=== PATIENT | female | born 1940 | race Caucasian/White ===

== ENCOUNTER 2017-07-22 10:25 | Day surgery (SDC) | payer MEDICARE, OTHER ==
[~2017-07-22] VITALS: Ht 162.6 cm; Wt 78.6 kg
[~2017-07-22 10:25] MED LIST: ALPR.5; ASCO1ER; ASPI81EC; CALMAGZIN; CEPH500 PO; CHOL10002; CONEST.625; CRANBERRY450 MG; ESOM20; ESTRADIOL1 MG PO; FISH OIL 1,0001 EAC1; FISH1000; HYDACE5 PO; Hair, Skin & N1 EACH; MULVITMINF; Omeprazole20 M1 PO; PHENA200 PO; TOCO1000; TOCO400; TRAM50 PO
== END 2017-07-22 13:24 | disposition home or self-care (01) ==
LOC: ORSCSDS 10:25
PROVIDERS: Surgery
PROC: 0DJD8ZZ Inspection of Lower Intestinal Tract, Via Natural or Artificial Opening Endoscopic (ICD-10-PCS; principal; 2017-07-22 11:45)
DX: Z12.11 Encounter for screening for malignant neoplasm of colon (principal); K57.30 Diverticulosis of large intestine without perforation or abscess without bleeding; Z80.0 Family history of malignant neoplasm of digestive organs; M79.7 Fibromyalgia; G47.33 Obstructive sleep apnea (adult) (pediatric); E78.5 Hyperlipidemia, unspecified; K21.9 Gastro-esophageal reflux disease without esophagitis; I10 Essential (primary) hypertension
CPT/HCPCS: J2250; J7120

== ENCOUNTER 2023-12-05 08:33 | Day surgery (SDC) | payer OTHER ==
[~2023-12-05] VITALS: Ht 157.5 cm; Wt 75.6 kg
[2023-12-05] VITALS (7 sets, daily range): BP systolic 84–150; BP diastolic 49–75
[~2023-12-05 08:33] MED LIST changes: -ALPR.5; +ALPR.5 PO; -CHOL10002; -CRANBERRY450 MG; +CRANBERRY500 M1 PO; +FISH OIL 1,0001 EA10 PO; -FISH OIL 1,0001 EAC1; -Hair, Skin & N1 EACH; +Hair, Skin & N1 EACH PO; +Lactated Ringer's 1,000 ML IV SCH; +OMEP20ER PO; -Omeprazole20 M1 PO; +VITAMIN D325 MC3 PO
[2023-12-05] MEDS ORDERED: Vitamin C100 M1 PO (09:13)
[2023-12-05] MEDS ORDERED: propofoL 40 ML IV ONE (09:58)
--- NOTE | 2023-12-05 10:15 | NUR ---
12/05/23 1015 Ede Pillai MONITOR INTACT WITH CONTINUOUS PULSE OXIMETRY, CONTINUOUS END TITAL CO2, AND INTERMITTENT BLOOD PRESSURE. AND EKG ANESTHESIA PER FERNA[employer]O [employer] TECHNICIAN
== END 2023-12-05 11:12 | disposition home or self-care (01) ==
LOC: ORSCMMR 08:33 → ORD 10:15 → ORSCMMR 11:12
PROVIDERS: Surgery
PROC: 0DJD8ZZ Inspection of Lower Intestinal Tract, Via Natural or Artificial Opening Endoscopic (ICD-10-PCS; principal; 2023-12-05 10:15)
DX: Z12.11 Encounter for screening for malignant neoplasm of colon (principal); K57.30 Diverticulosis of large intestine without perforation or abscess without bleeding; Z80.0 Family history of malignant neoplasm of digestive organs; K21.9 Gastro-esophageal reflux disease without esophagitis; G47.33 Obstructive sleep apnea (adult) (pediatric); M79.7 Fibromyalgia; E78.5 Hyperlipidemia, unspecified; E66.9 Obesity, unspecified; Z68.30 Body mass index [BMI] 30.0-30.9, adult; Z79.899 Other long term (current) drug therapy
CPT/HCPCS: J2704; J7120

== ENCOUNTER → 2024-08-05 | Outpatient (CLI) | payer OTHER ==
[~2024-08-05] MED LIST changes: -Lactated Ringer's 1,000 ML IV SCH; +Vitamin C100 M1 PO
== END | disposition home or self-care (01) ==
LOC: LAB SHORT 08:22 → PLD 08:22 → LAB 08:22
DX: B35.1 Tinea unguium (principal); L60.2 Onychogryphosis
CPT/HCPCS: 88305; 88312

== ENCOUNTER 2025-04-25 12:00 | Day surgery (SDC) | payer OTHER ==
[~2025-04-25] VITALS: Ht 160 cm; Wt 74.0 kg
[~2025-04-25 12:00] MED LIST changes: +EPINEPhrine HCl 1 MG / ML 30ML Vial ONE; +Lidocaine 2%-Epineph 1:200000 20 ML SDV ONE
[2025-04-25] MEDS ORDERED: AZO D-MANNOSE500 M1 PO (12:52)
[2025-04-25] MEDS ORDERED: Tranexamic Acid 100 ML IV ONE (13:21)
[2025-04-25] MEDS ORDERED: Midazolam HCl 1MG / ML 2ML Vial ONE (14:19)
[2025-04-25] MEDS ORDERED: FentaNYL Citrate 50 MCG/ML 2 ML Injection ONE (14:19)
[2025-04-25] MEDS ORDERED: Rocuronium Bromide 10 MG/ML 5ML Injection IV ONE (14:21)
[2025-04-25] MEDS ORDERED: Lidocaine 2%-Epineph 1:200000 20 ML SDV ONE (14:58)
--- NOTE | 2025-04-25 15:20 | NUR ---
04/25/25 1520 Sheron Ngo SINGLE DOSE OF TXA STARTED IN OR BY ANESTHESIA AT 1513
[2025-04-25] MEDS ORDERED: Ondansetron HCl 2 MG / ML 2ML Vial ONE (15:53)
[2025-04-25] MEDS ORDERED: Dexamethasone Sod Phos 10 MG/ML 1ML VIAL ONE (15:53)
[2025-04-25] MEDS ORDERED: Sugammadex Sodium 200 MG/2ML SDV (100 MG/ML) ONE (15:53)
[2025-04-25 16:33] VITALS: BP 125/64
== END 2025-04-25 17:02 | disposition home or self-care (01) ==
LOC: ORSCSDS 12:00
PROVIDERS: Otolaryngology
PROC: 09SL0ZZ Reposition Nasal Turbinate, Open Approach (ICD-10-PCS; principal; 2025-04-25 13:30)
PROC: 09BM0ZZ Excision of Nasal Septum, Open Approach (ICD-10-PCS; principal; 2025-04-25 13:30)
DX: J34.2 Deviated nasal septum (principal); J34.3 Hypertrophy of nasal turbinates; G47.33 Obstructive sleep apnea (adult) (pediatric); Z85.3 Personal history of malignant neoplasm of breast; Z79.899 Other long term (current) drug therapy
CPT/HCPCS: J0165; J1100; J2250; J2405; J2704; J3010